=== PATIENT | female | born 1995 | race Two or more races ===

== ENCOUNTER 2021-04-12 23:00 | Emergency (ER) | payer MEDICAID ==
[~2021-04-12] VITALS: Ht 167.6 cm; Wt 127.0 kg
[2021-04-12] MEDS ORDERED: HALOPERIDOL LACTATE 5 MG/1 ML VIAL IM ONE (23:15)
[2021-04-12] MEDS ORDERED: IV NORMAL SALINE 1000 ML BAG IV ONE (23:15)
[2021-04-12] MEDS ORDERED: HALOPERIDOL LACTATE 5 MG/1 ML VIAL ONE (23:15)
[2021-04-12] MEDS ORDERED: LORAZEPAM 2 MG/1 ML VIAL IM ONE (23:15)
--- NOTE | 2021-04-12 23:15 | NUR ---
patient medicated IM as ordered. will obtain labs once patient more calm
[2021-04-12] MEDS ORDERED: LORAZEPAM 2 MG/1 ML VIAL ONE (23:16)
[2021-04-12 23:42] LABS: HEMATOCRIT 37.7 % (31.2-41.9); MEAN CORPUSCULAR HEMOGLOBIN 28.5 uug (24.7-32.8); MEAN CORPUSCULAR VOLUME 84.8 fL (75.5-95.3); PLATELET COUNT (AUTO) 350 K/uL (179-408)
[2021-04-12 23:47] LABS: CARBON DIOXIDE 24 mmol/L (21-32); CHLORIDE 98 mmol/L (98-107); GLUCOSE 100 mg/dL (74-106); POTASSIUM 3.2 mmol/L (3.5-5.1); UREA NITROGEN, BLOOD 13 mg/dL (7-18)
[2021-04-12 23:48] LABS: ETHANOL < 3 MG/DL (0-0)
[2021-04-12 23:53] LABS: ALANINE AMINOTRANSFERASE 46 U/L (14-59); ALKALINE PHOSPHATASE 75 U/L (50-136); ASPARTATE AMINOTRANSFERASE 35 U/L (15-37); BILIRUBIN,DIRECT 0.3 mg/dL (0.0-0.2); BILIRUBIN,TOTAL 0.9 mg/dL (0.2-1.0); TOTAL PROTEIN, SERUM 8.4 g/dL (6.4-8.2)
[2021-04-13] MEDS ORDERED: POTASSIUM CHLORIDE 20 MEQ TAB.PRT.SR PO ONE
[2021-04-13] MEDS ORDERED: MAGNESIUM OXIDE 400 MG TABLET PO ONE
[2021-04-13 00:04] LABS: ACETAMINOPHEN < 2.0 ug/mL (10-30)
[2021-04-13] MEDS ORDERED: diphenhydrAMINE 50 MG/1 ML VIAL IV ONE (00:30)
[2021-04-13] MEDS ORDERED: diphenhydrAMINE 50 MG/1 ML VIAL ONE (00:47)
[2021-04-13 01:14] LABS: *BILIRUBIN,URIN 2+ (NEGATIVE); *CLARITY,URINE CLEAR (CLEAR); *COLOR,URINE DARK YELLOW (YELLOW); *KETONES,URINE 3+ (NEGATIVE); LEUKOCYTE ESTERASE ,URINE NEGATIVE (NEGATIVE); NITRITE, URINE NEGATIVE (NEGATIVE); UGLUCOSE NEGATIVE (NEGATIVE)
[2021-04-13 01:17] LABS: *BLOOD, URINE TRACE (NEGATIVE)
[2021-04-13 01:18] LABS: *URINE HCG, QUAL NEGATIVE (NEGATIVE)
[2021-04-13 01:21] LABS: *AMPHETAMINE, URINE POSITIVE (NEGATIVE); *CANNABINOID, URINE POSITIVE (NEGATIVE); *COCCAINE, URINE NEGATIVE (NEGATIVE); *OPIATE, URINE NEGATIVE (NEGATIVE); *PHENCYCLIDINE SCREEN,URINE NEGATIVE (NEGATIVE)
--- NOTE | 2021-04-13 01:45 | NUR ---
patient is asleep. resp are even & unlabored. will continue to monitor
[2021-04-13 02:04] LABS: RBC,URINE 0-3 /HPF (0-3)
[2021-04-13 02:05] LABS: BACTERIA,URINE FEW /HPF (NONE SEEN); MUCUS,URINE FEW /LPF (0-FEW); SQUAMOUS EPITHELIAL CELL,UR MODERATE /HPF (NONE SEEN); WBC,URINE 0-3 /HPF (0-3)
--- NOTE | 2021-04-13 06:37 | NUR ---
patient is still asleep. resp even & unlabored
--- NOTE | 2021-04-13 08:00 | NUR ---
PT AWAKE, ASKKING FOR BREAKFAST, PROVIDED. PT HAD THE BF WITH GOOD APETITE. PT DENIES ANY PAIN,NAUSEA, DIZZINESSS OR ANY OTHER COMPLAIN AT THIS TIME. PT GAVE A PHONE NUMBER SO WE CAN CALL.
[2021-04-13] MEDS ORDERED: MAGNESIUM OXIDE 400 MG TABLET ONE ×2 (08:12)
[2021-04-13] MEDS ORDERED: POTASSIUM CHLORIDE 20 MEQ TAB.PRT.SR ONE (08:12)
--- NOTE | 2021-04-13 09:49 | NUR ---
ARELY PA TALKED TO PT'S GRAND PARENT, WILL COME AND ASPHALT BLENDER THE PT.
--- NOTE | 2021-04-13 10:54 | NUR ---
PT'S GRANDMOTHER CAME AND TOOK PT HOME. PT SAYS FEELS BETTER, DENIES ANY PAIN OR DISTRESS. PT WALKS IN STEADY GAIT.Patient discharged to home in stable condition. Written and verbal after care instructions given. Patient verbalizes understanding of instructions. Stressed follow up or return to ER for worsening s/s.
[2021-04-13 11:22] VITALS: BP 119/61
== END 2021-04-13 10:54 | disposition home or self-care (01) ==
LOC: ER 23:04
DX: F15.259 Other stimulant dependence with stimulant-induced psychotic disorder, unspecified (principal); F12.20 Cannabis dependence, uncomplicated; E66.01 Morbid (severe) obesity due to excess calories; Z68.42 Body mass index [BMI] 45.0-49.9, adult; Z59.02 Unsheltered homelessness; D72.829 Elevated white blood cell count, unspecified; R82.4 Acetonuria; F20.9 Schizophrenia, unspecified; Z72.0 Tobacco use; Z20.822 Contact with and (suspected) exposure to COVID-19
CPT/HCPCS: 36415; 80048; 80076; 80299; 80307; 80320; 81001; 84702; 84703; 85025; 87426; 96361; 96372; 96374; 99284; J1200; J1630; J2060; C1758; G0480; J7030